=== PATIENT | female | born 1980 | race Caucasian/White ===

== ENCOUNTER 2017-03-03 09:42 | Inpatient (IN) ==
--- NOTE | 2017-03-03 10:58 | Emergency Department Note ---
Disposition Clinical Impression: Deep vein thrombosis of lower extremity, Lower extremity edema, Inferior vena caval thrombosis, Diabetes Disposition: Admitted As Inpatient Condition: Serious Referrals: Melanie Carter CNP [Primary Care Provider] - Forms: ED Satisfaction Letter Time of Disposition: 17:11 General Adult HPI - General Chief complaint: ED Extremity Problem,Nontraumatic Stated complaint: left leg swelling,diabetic Source: patient Limitations: no limitations Nursing Notes Reviewed: Yes Vital Signs Reviewed: Yes - History of Present Illness HPI Narrative: 36-year-old female presents to the ER with multiple list of complaints. Patient states that her vision is been blurry for the past 4-5 days. Was admitted to the hospital at [facility] over the weekend for diabetic ketoacidosis. She had blurry vision at that time and initially told me she did not tell the doctors about this but then later admitted that she lied and then told me that she did tell her doctors about it. She denies any loss of vision but states that her vision is just blurry. She has a history of wearing glasses. She denies any numbness in her face or leg. No speech problems. She does not know what her last hemoglobin A1c is. She states her sugars are never under control. She is also complaining of left lower leg swelling and pain. History of a DVT in the right extremity lower. She has a Enrrique filter present. Patient denies taking any blood thinners. She denies any trauma. She states the leg swelling is gotten so bad that she cannot walk. Pt Subjective Complaint: All the above complaints of been present for numerous days. Onset (ago): day(s) Pain Scale: 9 Quality: aching (Patient has pain all over.) Consistency: constant Improves with: nothing Worsens with: movement Associated symptoms: Reports: denies other symptoms - Related Data Allergies Allergy/AdvReac Type Severity Reaction Status Date / Time [place] Allergy Hives Verified 03/03/17 09:52 Constitutional: Denies: fever, chills Eyes: Reports: vision change Cardiovascular: Reports: other (Leg swelling). Denies: chest pain Respiratory: Denies: cough, dyspnea Gastrointestinal: Denies: abdominal pain Musculoskeletal: Denies: back pain, neck pain Integumentary: Reports: as per HPI Neurological: Reports: as per HPI, headache Psychiatric: Reports: as per HPI Endocrine: Reports: as per HPI Hematological/Lymphatic: Reports: as per HPI Past Medical History - Past Medical History Medical history: Reports: diabetes, hyperlipidemia Psychiatric history: Reports: bipolar - Social History Smoking Status: Former smoker Smokeless Tobacco Status: No Alcohol use: Reports: none Drug use: Reports: none Physical Exam - General Limitations: no limitations General appearance: alert, in no apparent distress - Head Head exam: atraumatic, normocephalic - Eye Eye exam: Present: normal appearance, PERRL, EOMI. Absent: scleral icterus - ENT ENT exam: normal exam - Neck Neck exam: Present: normal inspection - Chest Chest inspection: Present: normal inspection - Respiratory Respiratory exam: Present: normal lung sounds bilaterally - Cardiovascular Cardiovascular exam: Present: regular rate, normal rhythm - Abdominal Exam Abdominal exam: Present: soft, Non-Tender. Absent: tenderness - Extremities Exam Extremities exam: Present: other (Diffuse swelling of the left lower extremity. Positive pain to palpation. No redness.) - Back Exam Back exam: Present: normal inspection - Neurological Exam Neurological exam: Present: alert, oriented X3 - Psychiatric Psychiatric exam: Present: normal affect, normal mood - Skin Skin exam: Present: warm, dry, intact Course Course Narrative: I initially spoke with the power house control room operator who did the lower extremity Doppler was concerned about extensive clot throughout the left lower extremity as well as the right lower extremity. I then spoke with Dr. Gaston with vascular surgery. He would like a CT abdomen and pelvis with runoff of which I did. Patient has extensive clots throughout the femoral and iliac veins extending up into the inferior vena cava filter. It also appears that she may have some clot just above the filter. I spoke with the on-call vascular surgeon, Dr. Shin. He would like the patient admitted and started on a high-dose heparin drip. I have consulted with the hospitalist as well who has accepted the patient to their service. She is hemodynamically stable. Remaining of her lab work was unremarkable. - Consultations Consultation #1: dr Shin; vasculary surgery. Vital Signs Temperature 98 F 03/03/17 09:52 Pulse Rate 96 03/03/17 09:52 Respiratory Rate 16 03/03/17 09:52 Blood Pressure 108/69 03/03/17 09:52 O2 Sat by Pulse Oximetry 99 03/03/17 09:52 Temperature 98 F 03/03/17 09:52 Pulse Rate 92 03/03/17 16:00 Respiratory Rate 18 03/03/17 16:00 Blood Pressure 135/71 03/03/17 16:00 O2 Sat by Pulse Oximetry 94 03/03/17 16:00 Oxygen Delivery Oxygen Delivery Room Air Medical Decision Making - Medical Records Medical records reviewed: Yes I reviewed the patient's medical records. - Lab Data Lab results reviewed: Yes I reviewed the patient's lab results. Result diagrams: 03/03/17 11:01 03/03/17 11:01 Lab Results 03/03/17 03/03/17 03/03/17 Range/Units 10:14 11:01 11:01 WBC 11.5 H (4.3-11.1) K/mcL RBC 3.66 L (3.82-4.97) M/mcL Hgb 9.4 L (11.5-15.4) g/dL Hct 31.0 L (35.3-44.9) % MCV 84.7 (83.0-100.0) fL MCH 25.7 L (28.0-33.3) pg MCHC 30.3 L (31.6-35.5) g/dL RDW 15.3 H (11.5-14.5) % Plt Count 246 (140-400) K/mcL MPV 7.7 L (9.4-12.4) fL Immature Gran % 4.1 H (0-4) % Seg Neutrophils % 62.7 % Lymphocytes % 21.8 % Monocytes % 9.1 % Eosinophils % 1.6 % Basophils % 0.7 % Neutrophils # 7.2 (1.6-8.9) K/mcL Lymphocytes # 2.5 (0.6-4.6) K/mcL Monocytes # 1.1 (0.0-1.3) K/mcL Eosinophils # 0.2 (0.0-0.6) K/mcL Basophils # 0.1 (0.0-0.2) K/mcL Nucleated RBCs/100 WBC 0.7 H (0) /100 WBC Sodium 143 (136-145) mEq/L Potassium 3.7 (3.5-4.5) mEq/L Chloride 105 (98-109) mEq/L Carbon Dioxide 29 (19-29) mEq/L BUN 6 L (7-20) mg/dL Creatinine 0.79 (0.57-1.11) mg/dL Est GFR ( Amer) > 60 (> 60) Est GFR (Non-Af Amer) > 60 (> 60) BUN/Creatinine Ratio 8 (6-26) Glucose 65 L (70-99) mg/dL POC Glucose 76 (58-89) Calculated Osmolality 292 (280-300) Calcium 9.4 (8.6-10.8) mg/dL Total Bilirubin 0.3 (0.2-1.2) mg/dL Direct Bilirubin 0.2 (0.0-0.5) mg/dL Indirect Bilirubin 0.1 (0.0-1.2) mg/dL AST 12 (5-34) Units/L ALT 9 (0-55) Units/L Alkaline Phosphatase 52 (38-126) Units/L Serum Total Protein 7.0 (6.0-8.3) g/dL Albumin 2.9 L (3.5-5.0) g/dL Globulin 4.1 H (2.4-3.5) g/dL Albumin/Globulin Ratio 0.7 L (1.1-2.2) Triglycerides 163 H (< 150) mg/dL Cholesterol 225 H (< 200) mg/dL LDL Cholesterol, Calc 158 H (0-99) mg/dL VLDL Cholesterol, Calc 33 H (< 31) mg/dL HDL Cholesterol 34 L (40-59) mg/dL Cholesterol/HDL Ratio 6.6 H (0-4.9) - Radiology Data Radiology results reviewed: Yes I reviewed the patient's radiology results. Critical Care Time Total Critical Care Time: 45 Attestation: Critical care time spent in medical management as well as workup of this DVT and extensive clot throughout the abdomen and pelvis and lower extremities as well as in consultation with both vascular surgeons as well as the radiologist.
[2017-03-03] MEDS: Orphenadrine 100 MG TABLET.ER PO PRN (11:07)
[2017-03-03 11:10] LABS: Basophils # 0.1 K/mcL (0.0-0.2); Basophils % 0.7 %; Eosinophils # 0.2 K/mcL (0.0-0.6); Eosinophils % 1.6 %; Hemoglobin 9.4 g/dL (11.5-15.4); Immature Granulocytes % 4.1 % (0-4); Lymphocytes # 2.5 K/mcL (0.6-4.6); Lymphocytes % 21.8 %; Mean Corpuscular HGB Conc 30.3 g/dL (31.6-35.5); Mean Corpuscular Hemoglobin 25.7 pg (28.0-33.3); Mean Corpuscular Volume 84.7 fL (83.0-100.0); Mean Platelet Volume 7.7 fL (9.4-12.4); Monocytes # 1.1 K/mcL (0.0-1.3); Monocytes % 9.1 %; Neutrophils # 7.2 K/mcL (1.6-8.9); Nucleated Red Blood Cells 0.7 /100 WBC (0); Platelet Count 246 K/mcL (140-400); Red Blood Count 3.66 M/mcL (3.82-4.97); Red Cell Distribution Width 15.3 % (11.5-14.5); Segmented Neutrophils % 62.7 %
[2017-03-03 11:25] LABS: Alanine Aminotransferase 9 Units/L (0-55); Albumin 2.9 g/dL (3.5-5.0); Albumin/Globulin Ratio 0.7 (1.1-2.2); Alkaline Phosphatase 52 Units/L (38-126); Aspartate Amino Transferase 12 Units/L (5-34); BUN/Creatinine Ratio 8 (6-26); Bilirubin,Direct 0.2 mg/dL (0.0-0.5); Bilirubin,Indirect 0.1 mg/dL (0.0-1.2); Bilirubin,Total 0.3 mg/dL (0.2-1.2); Blood Urea Nitrogen 6 mg/dL (7-20); Calcium 9.4 mg/dL (8.6-10.8); Carbon Dioxide 29 mEq/L (19-29); Chloride 105 mEq/L (98-109); Chol/HDL Ratio 6.6 (0-4.9); Cholesterol 225 mg/dL (< 200); Globulin 4.1 g/dL (2.4-3.5); Glucose 65 mg/dL (70-99); HDL Cholesterol 34 mg/dL (40-59); LDL Cholesterol,Calculated 158 mg/dL (0-99); Osmolality,Calculated 292 (280-300); Potassium 3.7 mEq/L (3.5-4.5); Sodium 143 mEq/L (136-145); Triglycerides 163 mg/dL (< 150); eGFR For African Americans > 60 (> 60); eGFR For Non-African Americans > 60 (> 60)
[2017-03-03] MEDS ORDERED: *HR* OxyCODONE/APAP 10/325 TABLET PO ONE (16:44)
[2017-03-03] MEDS ORDERED: *HR* Heparin 5,000 UNIT/ML VIAL IVP ONE (17:02)
[2017-03-03] MEDS ORDERED: *HR* Heparin 5,000 UNIT/ML VIAL IVP PRN (17:02)
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
--- NOTE | 2017-03-03 17:57 | Venous Imaging Report ---
LE Venous Duplex Patient Name:Mary Hargrove Order Number:[id number] Procedure Date:03/03/2017 Date:1980Age:36 yrs Gender:Female Location:[facility] ED Room #: 31 Mechanical Cad Drafter:Harshad Hawkins Referring MD:Sanchez Riojas, barrel charrer:Reg Thomas MD Reading MD:Yonis Kuhn MD , [facility] Primary Indications:Left leg pain and swelling Secondary Indications: Risk Factors Yes/No Hx of DVT Yes Anticoagulants No Impressions: Lower extremity abnormal deep exam: right distal iliac vein, common femoral vein, and peroneal vein demonstrates acute thrombosis. Lower extremity abnormal deep exam: right popliteal vein demonstrates chronic thrombosis. Lower extremity abnormal deep exam: left iliac through tibial vein demonstrates acute thrombosis. Recommendations: After imaging the patient was sent to the emergency room. Critical findings reported to Dr. Riojas by phone at 2:01:01 pm on 03/03/2017 by Harshad Hawkins. Findings Venous Duplex Results: Right: Venous imaging of the lower extremity reveals full patency and normal vessel compressibility of the right superficial femoral, right posterior tibial, right great saphenous and right lesser saphenous. Doppler signals in the evaluated veins were normal. The right distal iliac demonstrates an incompressible vein. Flow was absent and it did not augment. The right common femoral demonstrates an incompressible vein. Flow was absent and it did not augment. The right popliteal demonstrates a partially compressible vein. Flow was phasic and it did augment. The right peroneal demonstrates an incompressible vein. Flow was absent and it did not augment. Left: The left distal iliac demonstrates an incompressible vein. Flow was absent and it did not augment. The left common femoral demonstrates an incompressible vein. Flow was absent and it did not augment. The left superficial femoral demonstrates an incompressible vein. Flow was absent and it did not augment. The left popliteal demonstrates an incompressible vein. Flow was absent and it did not augment. The left posterior tibial demonstrates an incompressible vein. Flow was absent and it did not augment. The left peroneal demonstrates an incompressible vein. Flow was absent and it did not augment. The left great saphenous demonstrates an incompressible vein. Flow was absent and it did not augment. The left lesser saphenous demonstrates an incompressible vein. Flow was absent and it did not augment. Prior Study: No prior study available for comparison. Lower Extremity Venous Duplex Side Vein Compress Spontaneous Flow Augment Diameter (cm) Depth (cm) Right Distal Iliac None no Absent no Right Common Femoral None no Absent no Right Superficial Femoral Normal yes Phasic yes Right Popliteal Partial yes Phasic yes Right Posterior Tibial Normal yes Phasic yes Right Peroneal None no Absent no Right Great Saphenous Normal yes Phasic yes Right Lesser Saphenous Normal yes Phasic yes Left Distal Iliac None no Absent no Left Common Femoral None no Absent no Left Superficial Femoral None no Absent no Left Popliteal None no Absent no Left Posterior Tibial None no Absent no Left Peroneal None no Absent no Left Great Saphenous None no Absent no Left Lesser Saphenous None no Absent no Updated by Yonis Kuhn MD, FACS on 03/03/2017 5:52:28 PM Yonis Kuhn MD electronically signed on 03/03/2017 5:52:53 PM with status of Final
[2017-03-03] MEDS ORDERED: Naloxone 0.4 MG/ML INJ IVP PRN (19:27)
[2017-03-03] MEDS ORDERED: INSULIN LISPRO 10 UNIT SQ SCH (19:30)
[2017-03-03] MEDS ORDERED: *HR* Dextrose 50 % in Water (Syg) 50 ML SYRINGE IVP PRN (19:31)
[2017-03-03] MEDS ORDERED: D5% in Water 1,000 ML IVC PRN (19:31)
[2017-03-03] MEDS ORDERED: Dextrose Gel 15 GM PO PRN ×2 (19:31)
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
[2017-03-03] MEDS ORDERED: Insulin LISPRO 300 UNITS/3 ML VIAL SQ SCH ×2 (19:45→21:00)
[2017-03-03 19:47] LABS: Hematocrit 29.7 % (35.3-44.9); Hemoglobin 9.1 g/dL (11.5-15.4); Mean Corpuscular HGB Conc 30.6 g/dL (31.6-35.5); Mean Corpuscular Hemoglobin 25.9 pg (28.0-33.3); Mean Corpuscular Volume 84.6 fL (83.0-100.0); Mean Platelet Volume 7.8 fL (9.4-12.4); Platelet Count 268 K/mcL (140-400); Red Blood Count 3.51 M/mcL (3.82-4.97); Red Cell Distribution Width 15.6 % (11.5-14.5)
[2017-03-03 19:50] LABS: INR 1.2; Prothrombin Time 12.6 Seconds (9.4-12.1)
[2017-03-03 19:52] LABS: Activated Partial Thrombo Time 31.9 Seconds (26.0-36.0)
[2017-03-03] MEDS: Gabapentin 400 MG CAPSULE PO SCH (20:12)
[2017-03-03] MEDS: Divalproex (24 HR) 500 MG TABLET PO SCH (20:13)
[2017-03-03] MEDS: Mirtazapine 15 MG TABLET PO SCH (20:13)
[2017-03-03] MEDS: Heparin 25,000 UNIT/500 ML D5W 25,000 UNIT/500 ML MLS IVC SCH (20:14)
[2017-03-03] MEDS ORDERED: *HR* OxyCODONE/APAP 5/325 TABLET PO ONE (22:26)
[2017-03-04] MEDS: *HR* OxyCODONE Immed Rel 5 MG TABLET PO PRN ×4 (03:11→20:56)
[2017-03-04 04:12] LABS: BUN/Creatinine Ratio 11 (6-26); Blood Urea Nitrogen 9 mg/dL (7-20); Calcium 9.2 mg/dL (8.6-10.8); Carbon Dioxide 26 mEq/L (19-29); Chloride 103 mEq/L (98-109); Glucose 151 mg/dL (70-99); Magnesium 1.9 mg/dL (1.6-2.6); Osmolality,Calculated 292 (280-300); Phosphorous 4.5 mg/dL (2.3-4.7); Potassium 3.8 mEq/L (3.5-4.5); Sodium 140 mEq/L (136-145); eGFR For African Americans > 60 (> 60); eGFR For Non-African Americans > 60 (> 60)
[2017-03-04 04:22] LABS: Hemoglobin A1C 11.2 %
[2017-03-04] MEDS: *HR* Heparin 5,000 UNIT/ML VIAL IVP PRN (04:48)
[2017-03-04] MEDS: Insulin LISPRO 300 UNITS/3 ML VIAL SQ SCH ×3 (06:24→17:29)
[2017-03-04 07:39] LABS: Factor V Leiden Normal (Normal); Prothrombin G20210A Mutation Normal (Normal)
[2017-03-04] MEDS: Gabapentin 400 MG CAPSULE PO SCH ×3 (08:07→20:56)
[2017-03-04] MEDS: Furosemide 20 MG TABLET PO SCH (08:07)
[2017-03-04] MEDS: Orphenadrine 100 MG TABLET.ER PO PRN ×2 (08:08→15:05)
[2017-03-04] MEDS: Divalproex (24 HR) 500 MG TABLET PO SCH ×2 (08:08→20:56)
[2017-03-04] MEDS ORDERED: Insulin DETEMIR 100 UNIT/ML X5UNITS SQ SCH (09:00)
[2017-03-04] MEDS: Insulin DETEMIR 100 UNIT/ML X5UNITS SQ SCH (09:41)
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
[2017-03-04] MEDS: Heparin 25,000 UNIT/500 ML D5W 25,000 UNIT/500 ML MLS IVC SCH (12:55)
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
--- NOTE | 2017-03-04 17:18 | Vascular/Endovas Progress Note ---
Date of Encounter: 03/04/17 Time of Encounter: 12:00 - Assessment and plan (1) Deep vein thrombosis of lower extremity Current Visit: Yes Status: Acute The patient has a history of deep vein thrombosis after right lower extremity trauma. She reports that she was recently hospitalized for diabetes. She now has an extensive iliocaval and lower extremity DVT. Her edema and pain have decreased with anticoagulation, but remain significant. She has been scheduled for a left lower extremity venous mechanical thrombectomy. The risks, benefits and alternatives were discussed and all questions were answered. She expresed understanding and wishes to proceed. The patient was discussed with the Hopitalist service.. Qualifiers: Affected thrombotic vein of extremity: iliac Laterality: bilateral Chronicity: acute Qualified Code(s): I82.423 - Acute embolism and thrombosis of iliac vein, bilateral (2) Inferior vena caval thrombosis Current Visit: Yes Status: Acute - Subjective Interval history: The patient reports decreased edema and pain overnight. She still has pain and tenderness particularly in the thigh. She denies chest pain or shortness of breath. Vital Signs, Last 4 Hours Temp Pulse Resp BP Pulse Ox 03/04/17 15:16 98.6 F 88 13 97/61 94 - Physical Examination General: Present: Conversant, No Apparent Distress HEENT: Present: Pupils equal Cardiac: Present: Reg Rate and Rhythm, Normal S1 and S2 Lungs: Present: Normal Breath Sounds, No Wheeze, Rales, Rhonchi Neuro: Present: Alert and responsive, No focal deficits noted, Motor nerves grossly intact, Sensory nerves grossly intact Vascular: Present: Normal capillary refill, Pulse, normal, Edema (2+ left lower extremity edema). Absent: Cyanosis Abdomen: Present: Soft, Non-tender Skin: Present: No rashes noted on visualized skin Musculoskeletal: Present: No Chest Wall Tenderness Results 03/06/17 04:00 03/06/17 04:00 Lab Results, Last 24 hours 03/04/17 03/04/17 03/04/17 03:53 03:53 11:20 APTT 52.4 H D 62.5 H Sodium 140 Potassium 3.8 Chloride 103 Carbon Dioxide 26 BUN 9 Creatinine 0.84 Glucose 151 H Calcium 9.2 Magnesium 1.9 Consult Discharge Plan - Plan Referrals: Sunny Mujica MD [Partnered Physician] - 04/06/17 1:10 pm Hullinger,Melanie A, CONTINGENTS SUPERVISOR [Primary Care Provider] - (patient will most likely go to [facility])
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
[2017-03-04] MEDS: Mirtazapine 15 MG TABLET PO SCH (20:56)
[2017-03-04] MEDS ORDERED: Insulin LISPRO 300 UNITS/3 ML VIAL SQ SCH (21:00)
[2017-03-05 04:08] LABS: INR 1.2; Prothrombin Time 13.4 Seconds (9.4-12.1)
[2017-03-05] MEDS: *HR* Heparin 5,000 UNIT/ML VIAL IVP PRN (04:15)
[2017-03-05] MEDS: Heparin 25,000 UNIT/500 ML D5W 25,000 UNIT/500 ML MLS IVC SCH (04:16)
[2017-03-05 04:56] LABS: Hematocrit 29.3 % (35.3-44.9); Hemoglobin 8.7 g/dL (11.5-15.4); Mean Corpuscular HGB Conc 29.7 g/dL (31.6-35.5); Mean Corpuscular Hemoglobin 25.3 pg (28.0-33.3); Mean Corpuscular Volume 85.2 fL (83.0-100.0); Mean Platelet Volume 7.8 fL (9.4-12.4); Nucleated Red Blood Cells 0.8 /100 WBC (0); Platelet Count 308 K/mcL (140-400); Red Blood Count 3.44 M/mcL (3.82-4.97); Red Cell Distribution Width 15.6 % (11.5-14.5)
[2017-03-05 05:22] LABS: BUN/Creatinine Ratio 10 (6-26); Blood Urea Nitrogen 8 mg/dL (7-20); Carbon Dioxide 23 mEq/L (19-29); Chloride 100 mEq/L (98-109); Glucose 180 mg/dL (70-99); Osmolality,Calculated 285 (280-300); Potassium 4.2 mEq/L (3.5-4.5); Sodium 136 mEq/L (136-145); eGFR For African Americans > 60 (> 60); eGFR For Non-African Americans > 60 (> 60)
[2017-03-05 05:53] LABS: Monocytes # 0.7 K/mcL (0.0-1.3); Neutrophils # 6.4 K/mcL (1.6-8.9); Platelet Estimate Normal (Normal); Toxic Granulation Present (Not Present)
[2017-03-05] MEDS: *HR* OxyCODONE Immed Rel 5 MG TABLET PO PRN ×3 (06:17→22:16)
[2017-03-05] MEDS: Furosemide 20 MG TABLET PO SCH (08:25)
[2017-03-05] MEDS: Divalproex (24 HR) 500 MG TABLET PO SCH (08:25)
[2017-03-05] MEDS: Gabapentin 400 MG CAPSULE PO SCH ×2 (08:25→18:06)
[2017-03-05] MEDS: Insulin LISPRO 300 UNITS/3 ML VIAL SQ SCH ×3 (08:29→18:06)
[2017-03-05] MEDS: Insulin DETEMIR 100 UNIT/ML X5UNITS SQ SCH (08:38)
[2017-03-05] MEDS ORDERED: Lidocaine -MPF 2% 2 ML VIAL ONE (14:04)
[2017-03-05] MEDS ORDERED: *HR* Propofol 200 MG/20 ML VIAL IVP ONE ×2 (14:06→17:52)
[2017-03-05] MEDS ORDERED: *HR* Succinylcholine 200 MG/10 ML VIAL IVP ONE (14:07)
[2017-03-05] MEDS ORDERED: Ondansetron 4 MG/2 ML VIAL ONE (14:08)
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
--- NOTE | 2017-03-05 16:12 | Oncology Inp Progress Note ---
Date of Encounter: 03/05/17 (1) Acute deep vein thrombosis (DVT) of both lower extremities Current Visit: Yes Status: Acute Assessment and plan: Doppler of the lower extremity obtained on 03/03/17 revealed acute thrombosis involving the right distal iliac vein, right common femoral vein, right peroneal vein, and left iliac through tibial vein. 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 This is her second recurrence of DVT. Both episodes were provoked. Because both episodes were provoked, an argument for only 6 months of anticoagulation can be made, provided she does not have any underlying inheritable thrombophilia. She however has an indwelling IVC filter which acts a nidus for clot formation and hence will also require life long anticoagulation. Agree with heparin. Following thrombolysis, she can be transitioned to xarelto 15 mg po bid for 21 days and then 20 mg daily. If hypercoaguable workup is negative, and IVC filter can be retrieved, she can possible get only 6 months of anticoagulation. Will check [place] workup , taking into account these values can be affected by acute thrombosis and heparin administration. She is planned for mechanical thrombolectomy by vascular. Qualifiers: Qualified Code(s): I82.403 - Acute embolism and thrombosis of unspecified deep veins of lower extremity, bilateral - Constitutional Vitals: Vital Signs Temp Pulse Resp BP Pulse Ox 03/05/17 13:17 98.2 F 86 18 95/60 94 03/05/17 04:39 98.4 F 100 18 136/70 90 03/04/17 21:00 94 03/04/17 19:11 98.2 F 86 16 95/54 94 Intake and Output 03/05/17 03/05/17 03/05/17 07:59 15:59 23:59 Intake Total 310 / 310 0 / 0 Balance 310 / 310 0 / 0 Intake: IV Fluids 310 / 310 0 / 0 Heparin 25,000 UNIT/500 310 / 310 0 / 0 ML D5W 25,000 unit In 500 ml @ 14 UNIT/KG/HR 28. 576 mls/hr IVC .[id number] NOLAN Rx#:[id number] Other: Meal npo Weight 106.9 kg Blood Glucose* 139 119 Patient Weight 03/05/17 23:59 Weight 106.9 kg Oncology: Obj Data - Labs CBC & Chem 7: 03/05/17 01:10 03/05/17 01:10 Labs: Laboratory Results - last 24 hr 03/04/17 03/04/17 03/04/17 16:15 17:14 20:35 WBC RBC Hgb Hct MCV MCH MCHC RDW Plt Count MPV Seg Neutrophils % Lymphocytes % Monocytes % Neutrophils # Lymphocytes # Monocytes # Nucleated RBCs/100 WBC Toxic Granulation Platelet Estimate PT INR APTT 48.3 H Sodium Potassium Chloride Carbon Dioxide BUN Creatinine Est GFR ( Amer) Est GFR (Non-Af Amer) BUN/Creatinine Ratio Glucose POC Glucose 156 H 177 H Calculated Osmolality Calcium Serum , Qual 03/05/17 03/05/17 03/05/17 00:00 01:10 01:10 WBC 11.0 RBC 3.44 L Hgb 8.7 L Hct 29.3 L MCV 85.2 MCH 25.3 L MCHC 29.7 L RDW 15.6 H Plt Count 308 MPV 7.8 L Seg Neutrophils % 58.0 Lymphocytes % 36.0 Monocytes % 6.0 Neutrophils # 6.4 Lymphocytes # 4.0 Monocytes # 0.7 Nucleated RBCs/100 WBC 0.8 H Toxic Granulation Present A Platelet Estimate Normal PT INR APTT 50.4 H Sodium 136 Potassium 4.2 Chloride 100 Carbon Dioxide 23 BUN 8 Creatinine 0.80 Est GFR ( Amer) > 60 Est GFR (Non-Af Amer) > 60 BUN/Creatinine Ratio 10 Glucose 180 H POC Glucose Calculated Osmolality 285 Calcium 9.0 Serum , Qual 03/05/17 03/05/17 03/05/17 04:00 04:00 09:38 WBC RBC Hgb Hct MCV MCH MCHC RDW Plt Count MPV Seg Neutrophils % Lymphocytes % Monocytes % Neutrophils # Lymphocytes # Monocytes # Nucleated RBCs/100 WBC Toxic Granulation Platelet Estimate PT 13.4 H INR 1.2 APTT 62.5 H Sodium Potassium Chloride Carbon Dioxide BUN Creatinine Est GFR ( Amer) Est GFR (Non-Af Amer) BUN/Creatinine Ratio Glucose POC Glucose Calculated Osmolality Calcium Serum , Qual Negative - ABG Interpretation ABG results: PT/INR, D-dimer PT 13.4 Seconds (9.4-12.1) H 03/05/17 04:00 Consult Discharge Plan - Plan Referrals: Melanie Carter, FIREWORKS ASSEMBLY SUPERVISOR [Primary Care Provider] - ([facility] likely go to [facility])
[2017-03-05] MEDS ORDERED: Heparin 1,000 UNITS/500 mL NS 500 ML ONE ×3 (16:29→18:23)
[2017-03-05] MEDS ORDERED: *HR* FentaNYL (PF) 100 MCG/2 ML VIAL ONE (16:39)
[2017-03-05] MEDS ORDERED: *HR* Midazolam HCl 2 MG/2 ML VIAL ONE (16:39)
[2017-03-05] MEDS ORDERED: Alteplase (Cathflo) 10 MG in 0.9 % Sodium Chloride 100 ML IVPB ONE (17:00)
[2017-03-05] MEDS ORDERED: *HR* Labetalol 100 MG/20 ML MDV IVP PRN (17:50)
[2017-03-05] MEDS ORDERED: Ondansetron 4 MG/2 ML VIAL IVP ONE (17:50)
[2017-03-05] MEDS ORDERED: *HR* HYDROmorphone 2 MG/ML SYRINGE ONE (18:10)
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
[2017-03-05] MEDS: *HR* HYDROmorphone (PF) 1 MG/ML SYRINGE IVP PRN ×2 (19:58→20:06)
[2017-03-05] MEDS ORDERED: Gabapentin 300 MG CAPSULE PO ONE ×2 (20:13→20:30)
[2017-03-05] MEDS ORDERED: Acetaminophen IV 1,000 MG/100 ML INFUS..BTL IVPB ONE (20:14)
--- NOTE | 2017-03-05 21:24 | Anesthesia Evaluation Post Op ---
Date of Encounter: 03/05/17 Time of Encounter: 20:45 - Vital Signs Vital Signs: Vital Signs/O2 Sat/Glucose, Most Current Temp Pulse Resp BP Pulse Ox 03/05/17 20:50 81 16 115/70 94 03/05/17 20:40 74 18 111/68 94 03/05/17 20:30 97.9 F 74 18 102/70 94 03/05/17 20:20 79 16 110/74 93 03/05/17 20:10 83 16 111/76 94 03/05/17 20:00 97.9 F 78 18 113/64 97 03/05/17 19:50 82 16 106/68 93 03/05/17 19:40 84 16 102/65 93 03/05/17 19:30 98.0 F 80 12 98/51 100 - Lungs Lungs: Clear Ascult./Percussion - Airway Airway: Non-obstructed - Cardiovascular Regular Rate - Mental Status Mental Status: Alert & Oriented, Answers Appropriately - Pain Pain Scale: 6 Pain Scale used: Numeric (1 - 10) - Nausea Vomiting Nausea Vomiting: Not Present - Hydration Hydration: Ice chips, Has not voided - Discharge PostOp Status: Transfer Patient to floor Anes Supervising Prov Stmt: Pt seen/evaluated, VSS and pt has met criteria for discharge to home. - MD Tricia
[2017-03-05] MEDS ORDERED: *HR* Dextrose 50 % in Water (Syg) 50 ML SYRINGE IVP PRN (21:36)
[2017-03-05] MEDS ORDERED: Dextrose Gel 15 GM PO PRN ×2 (21:36)
[2017-03-05] MEDS ORDERED: Naloxone 0.4 MG/ML INJ IVP PRN (21:36)
[2017-03-05] MEDS ORDERED: 0.9 % Sodium Chloride 1,000 ML IVC SCH (21:36)
[2017-03-05] MEDS ORDERED: *HR* HYDROmorphone (PF) 1 MG/ML SYRINGE IVP PRN (21:36)
[2017-03-05] MEDS ORDERED: D5% in Water 1,000 ML IVC PRN (21:36)
[2017-03-05] MEDS: *HR* Rivaroxaban 15 MG TABLET PO SCH (21:58)
[2017-03-06] MEDS: *HR* OxyCODONE Immed Rel 5 MG TABLET PO PRN ×2 (04:08→12:01)
[2017-03-06 04:53] LABS: Hematocrit 30.7 % (35.3-44.9); Hemoglobin 9.3 g/dL (11.5-15.4); Lymphocytes # 2.4 K/mcL (0.6-4.6); Mean Corpuscular HGB Conc 30.3 g/dL (31.6-35.5); Mean Corpuscular Hemoglobin 26.3 pg (28.0-33.3); Mean Corpuscular Volume 86.7 fL (83.0-100.0); Nucleated Red Blood Cells 2.3 /100 WBC (0); Platelet Count 270 K/mcL (140-400); Red Blood Count 3.54 M/mcL (3.82-4.97); Red Cell Distribution Width 15.9 % (11.5-14.5)
[2017-03-06 05:12] LABS: BUN/Creatinine Ratio 10 (6-26); Blood Urea Nitrogen 9 mg/dL (7-20); Calcium 8.5 mg/dL (8.6-10.8); Carbon Dioxide 27 mEq/L (19-29); Chloride 101 mEq/L (98-109); Glucose 165 mg/dL (70-99); Osmolality,Calculated 290 (280-300); Sodium 139 mEq/L (136-145); eGFR For African Americans > 60 (> 60); eGFR For Non-African Americans > 60 (> 60)
[2017-03-06 05:36] LABS: Potassium 4.4 mEq/L (3.5-4.5)
[2017-03-06 05:43] LABS: Eosinophils # 0.3 K/mcL (0.0-0.6); Large Platelets Present (Not Present); Monocytes # 0.8 K/mcL (0.0-1.3); Neutrophils # 9.7 K/mcL (1.6-8.9); Platelet Estimate Normal (Normal); Polychromasia 1+ (Not Present); Reactive Lymphocytes Present (Not Present)
[2017-03-06] MEDS: Insulin LISPRO 300 UNITS/3 ML VIAL SQ SCH ×2 (08:38→12:01)
[2017-03-06] MEDS: *HR* Rivaroxaban 15 MG TABLET PO SCH (08:39)
[2017-03-06] MEDS ORDERED: Divalproex (24 HR) 500 MG TABLET PO SCH (09:00)
[2017-03-06] MEDS ORDERED: Gabapentin 400 MG CAPSULE PO SCH (09:00)
[2017-03-06] MEDS ORDERED: Insulin DETEMIR 100 UNIT/ML X5UNITS SQ SCH (09:00)
[2017-03-06] MEDS ORDERED: Furosemide 20 MG TABLET PO SCH (09:00)
--- NOTE | 2017-03-06 10:37 | Vascular/[facility]as Progress Note ---
Date of Encounter: 03/06/17 Time of Encounter: 09:30 - Assessment and plan (1) Deep vein thrombosis of lower extremity Current Visit: Yes Status: Acute The patient is postoperative day #1 after lytic therapy, mechanical thrombectomy and angioplasty for an extensive iliocaval and lower extremity DVT. Her edema has decreased and her symptoms have decreased as well. She started Xarelto last night. Recommend DRISS hose today. Patient will be given a prescription for compression stockings. She will follow-up in vascular clinic in 4 weeks. She is ok for discharge froma ascular perspective. She will likely require lifelong anticoagulation. Qualifiers: Affected thrombotic vein of extremity: iliac Laterality: bilateral Chronicity: acute Qualified Code(s): I82.423 - Acute embolism and thrombosis of iliac vein, bilateral (2) Inferior vena caval thrombosis Current Visit: Yes Status: Acute - Subjective Interval history: She reports that her left leg feels better today. She feels that her bandage is too tight. She denies chest pain or shortness of breath. Vital Signs, Last 4 Hours Temp Pulse Resp BP Pulse Ox 03/06/17 10:22 98.1 F 100 18 95/58 95 03/06/17 07:06 99.0 F 93 16 92/50 97 - Physical Examination General: Present: Conversant, No Apparent Distress HEENT: Present: Pupils equal Lungs: Present: Normal Breath Sounds Neuro: Present: Alert and responsive, No focal deficits noted Vascular: Present: Normal capillary refill, Pulse, normal, Edema (trace left lower extremity edema), Surgical incisions (no hematoma). Absent: Cyanosis Abdomen: Present: Soft Skin: Present: No rashes noted on visualized skin - VTE Documentation of Mechanical Device: Intermittent pneumatic compression device Results 03/06/17 04:00 03/06/17 04:00 Lab Results, Last 24 hours 03/06/17 03/06/17 04:00 04:00 WBC 13.1 H Hgb 9.3 L Hct 30.7 L Plt Count 270 Sodium 139 Potassium 4.4 Chloride 101 Carbon Dioxide 27 BUN 9 Creatinine 0.94 Glucose 165 H Calcium 8.5 L Consult Discharge Plan - Plan Referrals: Melanie Cartre CNP [Primary Care Provider] - (patient will most likely go to [facility]) Sunny Mujica MD [Partnered Physician] - 04/06/17 1:10 pm
[2017-03-06] MEDS ORDERED: Acetaminophen 325 MG TABLET PO ONE (10:53)
[2017-03-06 11:01] LABS: Homocysteine 5 umol/L (<=10)
[2017-03-06 11:18] VITALS: BP 98/60
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
--- NOTE | 2017-03-06 13:05 | Physician Discharge Referral ---
ExtendedCare Referral Info Transfer To: [facility] - Diagnosis (1) Deep vein thrombosis of lower extremity Status: Acute (2) Bipolar disorder Status: Chronic (3) Obesity (BMI 30-39.9) Status: Chronic Prognosis: Fair Aware of Diagnosis: Patient Aware of Prognosis: Patient - Transfer Medications Prescriptions: OxyCODONE Immed Rel [Roxicodone 5 MG] 5 mg PO Q6HR PRN #20 tablet PRN Reason: Moderate to Severe Pain (4-10) Rivaroxaban [Xarelto] 15 mg PO BID 21 Days Home Medications: Divalproex (24 HR) [Depakote ER (24 HR)] 500 mg PO BID 03/03/17 [History] Doxepin HCl 75 mg PO HS 03/03/17 [History] Furosemide [Lasix] 20 mg PO DAILY 03/03/17 [History] Gabapentin [Neurontin] 800 mg PO TID 03/03/17 [History] Insulin Glargine,Hum.rec.anlog [Lantus Solostar] 60 unit SQ BID 03/03/17 [ History] Insulin LISPRO [Humalog Kwikpen U-100] 10 unit SQ QPM 03/03/17 [History] Insulin LISPRO [Humalog Kwikpen U-100] 20 unit SQ QAM 03/03/17 [History] Levonorgestrel [Mirena] 52 mg IY ONCE 03/03/17 [History] Lisinopril 2.5 mg PO DAILY 03/03/17 [History] Metformin HCl [Glucophage] 1,000 mg PO BID 03/03/17 [History] Mirtazapine [Remeron] 45 mg PO HS 03/03/17 [History] Prazosin [Minipress] 3 mg PO HS 03/03/17 [History] OxyCODONE Immed Rel [Roxicodone 5 MG] 5 mg PO Q6HR PRN #20 tablet 03/06/17 [Rx] Rivaroxaban [Xarelto] 15 mg PO BID 21 Days 03/06/17 [Rx] Allergies/Adverse Reactions: Allergies [place] Allergy (Verified 03/03/17 09:52) Hives - Respiratory Orders Oxygen / L per min (2) Smoking Cessation: Smoking cessation has been advised. For more information, call the [place] Tobacco Quit Line at 9-902-WEPA-NOW. - Advance Directives Code Status: Full Code - Mobility Orders Ambulate - Rehabiliation Orders Rehab Potential: Fair Rehab Orders: ROM Exercises, Evaluation for Physical Therapy, Evaluation for Occupational Therapy - Diet Orders Regular CERTIFICATION: I certify that the transfer of the above named patient to an Extended Care Facility is necessary for the continuing treatment of the diagnosis listed. The above information is true and accurate reflection of patient's current condition. Confidential - Redisclosure prohibited without a patient's written consent.
[2017-03-06 17:13] LABS: APTT (LE Anticoag) 103 sec (32-48); Diluted Russell Viper Venom 37 sec (33-44); LE APTT D Heparin Neutralized 52 sec (32-48); LE Coag APTT Mixing 48 sec (32-48); LE Coag Reptilase Time 17.7 sec (<=21.9); PT (LE-Anticoag) 15.1 sec (12.0-15.5); Thrombin Time 95.3 sec (14.7-19.5)
[2017-03-06] MEDS ORDERED: Insulin LISPRO 300 UNITS/3 ML VIAL SQ SCH (21:00)
[2017-03-06] MEDS ORDERED: Mirtazapine 15 MG TABLET PO SCH (21:00)
[2017-03-07 10:38] LABS: Antithrombin III, Activity 81 % (76-128); Protein C, Functional 154 % (83-168); Protein S Antigen, Total 154 % (63-126); Protein S, Functional 111 % (57-131)
== END 2017-03-06 14:35 | DRG 271 ==
LOC: EMEROO 09:42 → 2ANU 09:42
PROVIDERS: ADMIT Internal Medicine; ATTEND Internal Medicine

== ENCOUNTER 2020-07-18 14:38 | Observation (INO) ==
[2020-07-18] MEDS ORDERED: 0.9 % Sodium Chloride 1,000 ML IVC ONE (15:21)
[2020-07-18 15:34] LABS: Bacteria,Urine Few per hpf (None-Few); Bilirubin,Urine Negative (Negative); Blood,Urine Negative (Negative); Clarity,Urine Clear (Clear); Color,Urine Light-Yellow (Yellow); Glucose,Urine (UA) Normal (Normal); Hyaline Casts,Urine Many per lpf (None Seen); Ketones,Urine Negative (Negative); Leukocyte Esterase,Urine Moderate (Negative); Mucus,Urine Few per lpf (None-Few); Nitrite,Urine Negative (Negative); Protein,Urine Trace mg/dL (Neg-Trace); RBC,Urine 0-3 per hpf (0-3); Renal Epithelial Cells,Urine Few per hpf (None-Few); Squamous Epithelial Cell,Urine Few per hpf (None-Few); Transitional Epi Cells,Urine Few per hpf (None-Few); Urobilinogen,Urine Normal (Normal); WBC,Urine 30-50 per hpf (0-3)
[2020-07-18 15:41] LABS: Basophils # 0.1 K/mcL (0.0-0.2); Basophils % 0.7 %; Eosinophils # 0.1 K/mcL (0.0-0.6); Eosinophils % 0.5 %; Hematocrit 44.7 % (35.3-44.9); Immature Granulocytes % 0.4 % (0-4); Lymphocytes # 4.5 K/mcL (0.6-4.6); Lymphocytes % 41.4 %; Mean Corpuscular HGB Conc 33.6 g/dL (31.6-35.5); Mean Corpuscular Hemoglobin 29.2 pg (28.0-33.3); Mean Corpuscular Volume 87.1 fL (83.0-100.0); Mean Platelet Volume 8.8 fL (9.4-12.4); Monocytes # 0.8 K/mcL (0.0-1.3); Monocytes % 7.2 %; Neutrophils # 5.4 K/mcL (1.6-8.9); Platelet Count 307 K/mcL (140-400); Red Blood Count 5.13 M/mcL (3.82-4.97); Red Cell Distribution Width 12.6 % (11.5-14.5); Segmented Neutrophils % 49.8 %; White Blood Count 10.9 K/mcL (4.3-11.1)
[2020-07-18 15:54] LABS: VBG HCO3 22 mEq/L (21-27); VBG PCO2 30 mmHg (41-51); VBG PH 7.48 pH Units (7.32-7.42); VBG PO2 229 mmHg (25-50)
[2020-07-18 16:13] LABS: Alanine Aminotransferase 18 Units/L (7-52); Albumin 5.3 g/dL (3.5-5.7); Alkaline Phosphatase 47 Units/L (34-104); Aspartate Amino Transferase 20 Units/L (13-39); BUN/Creatinine Ratio 8 (6-26); Bilirubin,Indirect 0.4 mg/dL (0.0-1.0); Bilirubin,Total 0.4 mg/dL (0.3-1.0); Blood Urea Nitrogen 7 mg/dL (6-20); Calcium 10.4 mg/dL (8.6-10.3); Carbon Dioxide 25 mEq/L (23-29); Chloride 98 mEq/L (98-107); Creatine Kinase 58 Units/L (30-223); Globulin 2.7 g/dL (2.4-3.5); Glucose 99 mg/dL (70-105); Magnesium 1.7 mg/dL (1.6-2.6); Osmolality,Calculated 280 (280-300); Potassium 2.9 mEq/L (3.5-5.1); Sodium 136 mEq/L (136-145); Thyroid Stimulating Hormone 0.981 mcIU/mL (0.340-5.600); Troponin I < 0.03 ng/mL (< 0.04); Valproate 113 mcg/mL (50-100); eGFR For African Americans > 60 (> 60); eGFR For Non-African Americans > 60 (> 60)
[2020-07-18] MEDS ORDERED: Potassium Chloride 40 MEQ, Lidocaine 1% 2 ML in 0.9 % Sodium Chloride 500 ML IVPB ONE (16:16)
[2020-07-18] MEDS ORDERED: Naloxone 0.4 MG/ML INJ IVP PRN (17:35)
[2020-07-18] MEDS ORDERED: Ondansetron ODT 4 MG TAB.RAPDIS SL PRN (17:35)
[2020-07-18] MEDS ORDERED: D5% in Water 1,000 ML IVC PRN (17:44)
[2020-07-18] MEDS ORDERED: Dextrose Gel 15 GM/37.5 ML TUBE PO PRN ×2 (17:44)
[2020-07-18] MEDS ORDERED: *HR* Dextrose 50 % in Water (Vial) 50 ML VIAL IVP PRN (17:44)
[2020-07-18] MEDS ORDERED: 0.9 % Sodium Chloride 1,000 ML IVC SCH (17:45)
[2020-07-18] MEDS ORDERED: cefTRIAXone 1,000 MG in Water for inj. (sterile) 10 ML IVP SCH (18:00)
[2020-07-18 20:27] LABS: Adenovirus Not Detected (Not Detect); Bordetella Pertussis Not Detected (Not Detect); Chlamydophila pneumoniae Not Detected (Not Detect); Coronavirus 229E Not Detected (Not Detect); Coronavirus HKU1 Not Detected (Not Detect); Coronavirus NL63 Not Detected (Not Detect); Coronavirus OC43 Not Detected (Not Detect); Human Metapneumovirus Not Detected (Not Detect); Human Rhinovirus/Enterovirus Not Detected (Not Detect); Influenza A Subtype 2009 H1 Not Detected (Not Detect); Influenza B Not Detected (Not Detect); Mycoplasma pneumoniae Not Detected (Not Detect); Parainfluenza Virus 1 Not Detected (Not Detect); Parainfluenza Virus 2 Not Detected (Not Detect); Parainfluenza Virus 3 Not Detected (Not Detect); Parainfluenza Virus 4 Not Detected (Not Detect); Respiratory Syncytial Virus Not Detected (Not Detect); SARS-CoV-2 Not Detected (Not Detect)
[2020-07-18] MEDS ORDERED: Insulin LISPRO 300 UNITS/3 ML VIAL SQ SCH (21:00)
[2020-07-18] MEDS: Nicotine 21 MG PATCH.TD24 TD SCH (22:03)
[2020-07-19 00:52] LABS: Campylobacter by PCR Not detected (Not detect)
[2020-07-19 00:54] LABS: Adenovirus F 40/41 PCR Not detected (Not detect); Astrovirus PCR Not detected (Not detect); C.difficile Toxin A/B Gene PCR DETECTED (Not detect); Cryptosporidium by PCR Not detected (Not detect); Cyclospora cayetanensis PCR Not detected (Not detect); E. coli O157 by PCR Not detected (Not detect); Entamoeba histolytica PCR Not detected (Not detect); Enteroaggregative E.coli(EAEC) Not detected (Not detect); Enteropathogenic E.coli(EPEC) Not detected (Not detect); Enterotoxigenic E.coli (ETEC) Not detected (Not detect); Giardia lamblia PCR Not detected (Not detect); Norovirus GI/GII PCR Not detected (Not detect); Plesiomonas shigelloides PCR Not detected (Not detect); Rotavirus A PCR Not detected (Not detect); Salmonella PCR Not detected (Not detect); Sapovirus PCR Not detected (Not detect); Shig/EnteroinvasiveE coli EIEC Not detected (Not detect); Shigalike tox-prod E coli STEC Not detected (Not detect); Vibrio PCR Not detected (Not detect); Vibrio cholerae PCR Not detected (Not detect); Yersinia enterocolitica PCR Not detected (Not detect)
[2020-07-19] MEDS: Vancomycin Oral Soln 125 MG/2.5 ML UDC PO SCH ×3 (01:48→13:59)
[2020-07-19 02:23] LABS: Hematocrit 35.4 % (35.3-44.9); Red Cell Distribution Width 12.6 % (11.5-14.5)
[2020-07-19 02:24] LABS: Basophils # 0.1 K/mcL (0.0-0.2); Basophils % 0.7 %; Eosinophils # 0.1 K/mcL (0.0-0.6); Hemoglobin 11.7 g/dL (11.5-15.4); Immature Granulocytes % 0.4 % (0-4); Immature Platelets 6.1 % (1.1-6.1); Lymphocytes % 48.9 %; Mean Corpuscular HGB Conc 33.1 g/dL (31.6-35.5); Mean Corpuscular Hemoglobin 28.9 pg (28.0-33.3); Mean Corpuscular Volume 87.4 fL (83.0-100.0); Mean Platelet Volume 10.4 fL (9.4-12.4); Monocytes # 0.8 K/mcL (0.0-1.3); Monocytes % 9.8 %; Neutrophils # 3.2 K/mcL (1.6-8.9); Platelet Count 185 K/mcL (140-400); Red Blood Count 4.05 M/mcL (3.82-4.97); Segmented Neutrophils % 39.2 %; White Blood Count 8.2 K/mcL (4.3-11.1)
[2020-07-19 02:39] LABS: BUN/Creatinine Ratio 12 (6-26); Blood Urea Nitrogen 9 mg/dL (6-20); Calcium 8.6 mg/dL (8.6-10.3); Carbon Dioxide 26 mEq/L (23-29); Chloride 104 mEq/L (98-107); Glucose 99 mg/dL (70-105); Magnesium 1.5 mg/dL (1.6-2.6); Osmolality,Calculated 283 (280-300); Potassium 3.6 mEq/L (3.5-5.1); Sodium 137 mEq/L (136-145); eGFR For African Americans > 60 (> 60); eGFR For Non-African Americans > 60 (> 60)
[2020-07-19] MEDS: Insulin LISPRO 300 UNITS/3 ML VIAL SQ SCH ×2 (08:00→10:42)
[2020-07-19] MEDS: Nicotine 21 MG PATCH.TD24 TD SCH (08:32)
[2020-07-19 10:34] VITALS: BP 112/71
[2020-07-19] MEDS ORDERED: Divalproex (12 HR) 500 MG TABLET PO SCH ×2 (11:00→21:00)
[2020-07-19] MEDS ORDERED: hydrOXYzine pamoate 25 MG CAPSULE PO PRN (11:34)
[2020-07-19] MEDS ORDERED: FLU Vac QV 20-21 (6Month+)/PF 0.5 ML SYRINGE IM ONE (11:49)
[2020-07-19] MEDS ORDERED: *HR* Rivaroxaban 10 MG TABLET PO SCH (17:00)
[2020-07-19] MEDS ORDERED: Gabapentin 400 MG CAPSULE PO SCH (21:00)
[2020-07-19] MEDS ORDERED: *HR* Metformin 500 MG TABLET PO SCH (21:00)
[2020-07-20] MEDS ORDERED: BuPROPion XL (24 HR) 150 MG TABLET PO SCH (09:00)
[2020-07-20] MEDS ORDERED: FLUoxetine 20 MG CAPSULE PO SCH (09:00)
[2020-07-20] MEDS ORDERED: Furosemide 40 MG TABLET PO SCH (09:00)
== END 2020-07-19 14:25 | disposition home or self-care (01) ==
LOC: 3BNU 14:38 → EMEROOARM 14:38 → SUATTDRO 20:44 → 3BNU 21:40
PROVIDERS: ADMIT Student in an Organized Health Care Education/Training Program; ATTEND Internal Medicine